=== PATIENT | female | born 1995 | race Two or more races ===

== ENCOUNTER 2021-08-26 17:56 | Observation (INO) | payer SELFPAY ==
[~2021-08-26] VITALS: Ht 157.5 cm; Wt 68.0 kg
[2021-08-26] MEDS ORDERED: LACTATED RINGER'S 1,000 ML IV ONE ×2 (18:45)
[2021-08-26] MEDS: TERBUTALINE SULFATE 1 MG/ML 1ML VIAL SC SCH ×2 (18:57→19:40)
== END 2021-08-26 20:33 | disposition home or self-care (01) ==
LOC: LDRP 17:56
PROVIDERS: ADMIT Obstetrics & Gynecology; ATTEND Obstetrics & Gynecology
DX: O60.03 Preterm labor without delivery, third trimester (principal); Z3A.34 34 weeks gestation of pregnancy; Z98.891 History of uterine scar from previous surgery; Z87.891 Personal history of nicotine dependence
CPT/HCPCS: 59025; 76805; 81002; 94760; 96360; 96361; 96372; G0378; J3105